=== PATIENT | female | born 1960 | race Caucasian/White ===

== ENCOUNTER 2021-06-15 09:42 | Emergency (ER) | payer MEDICARE ==
[~2021-06-15] VITALS: Ht 167.6 cm; Wt 91.0 kg
[2021-06-15 09:46] VITALS: BP 142/88
[2021-06-15] MEDS: METHOCARBAMOL 500MG TABLET PO ONE ×2 (10:53→11:58)
[2021-06-15] MEDS: KETOROLAC 60MG/2ML VIAL IM ONE ×3 (10:53→12:07)
== END 2021-06-15 12:54 | disposition home or self-care (01) ==
LOC: ER 09:42
DX: S20.219A Contusion of unspecified front wall of thorax, initial encounter (principal); S40.011A Contusion of right shoulder, initial encounter; S80.02XA Contusion of left knee, initial encounter; E11.9 Type 2 diabetes mellitus without complications; Z79.4 Long term (current) use of insulin; V43.52XA Car driver injured in collision with other type car in traffic accident, initial encounter; Y93.89 Activity, other specified; Y92.488 Other paved roadways as the place of occurrence of the external cause
CPT/HCPCS: 71045; 73030; 73560; 99284; J1885